=== PATIENT | female | born 1960 ===

== ENCOUNTER 2017-11-11 07:25 | Day surgery (SDC) | payer MEDICARE ==
[~2017-11-11 07:25] MED LIST: Bupivacaine HCl 0.25% PF (10 ml) Inj ONE; Lidocaine Hydrochloride 0 ML INJ ONE; MethylPREDNISolone Depo 40 mg/ml Inj ONE
[2017-11-11] MEDS ORDERED: Lidocaine Hydrochloride 0 ML INJ ONE (07:26)
[2017-11-11] MEDS ORDERED: Iohexol 240 (50 ml) ONE (07:26)
[2017-11-11] MEDS ORDERED: Bupivacaine HCl 0.25% PF (10 ml) Inj ONE (07:26)
[2017-11-11] MEDS ORDERED: MethylPREDNISolone Depo 40 mg/ml Inj ONE (07:26)
[2017-11-11] MEDS ORDERED: Propofol 10 mg/ml Inj (20 ML) ONE (07:33)
[2017-11-11] MEDS ORDERED: Midazolam 2 MG/2 ML VIAL ONE (09:14)
[2017-11-11 10:42] VITALS: PULSE 58; RESP 16; O2SAT 100
--- NOTE | 2017-11-11 13:12 | OP ---
PROCEDURE DATE: 11/11/2017 PREOPERATIVE DIAGNOSES: 1. Cervical radiculopathy. 2. 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 3. Myalgias. POSTOPERATIVE DIAGNOSES: 1. Cervical radiculopathy. 2. 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 3. Myalgias. PROCEDURE: 1. Cervical epidural steroid injection, C6-C7. 2. Epidurogram. 3. Trigger point injections. X-RAY: [id number], fluoroscopy of the spine. ANESTHESIA: MAC/local. SURGEON: Mayra Gardner MD COMPLICATIONS: None. BLOOD LOSS: 2 mL. BRIEF HISTORY AND INDICATIONS: The patient has cervical radiculopathy and upper extremity pain and tingling radiating down from the posterior neck down to the arm and posterior shoulder side to all fingers. This patient presents today for a cervical epidural steroid injection under fluoroscopic guidance at the C6-C7 interlaminar space. PROCEDURE IN DETAIL: The patient, after giving informed consent for the procedure, was brought back to the procedure room, sitting in a wheelchair. Routine monitors were applied. The patient was leant forward with his neck flexed and forehead placed on a towel on the OR table. Neck was flexed at approximately 50 degrees lateral. Lateral fluoroscopic view was obtained at the C6-C7 levels. The patient was prepped and draped in a sterile fashion. A 27-gauge needle was used to inject lidocaine 1% subcutaneously over the skin overlying the interlaminar space of C6-C7. Subsequently, a 22-gauge Tuohy needle was used to advance into the C6-C7 interlaminar area using loss of resistance technique to enter the epidural space. The needle position was confirmed in lateral views. Contrast 180 Omnipaque was injected 0.5 mL showing good epidurogram. Subsequently, 80 mg of Depo-Medrol with 1 mL of normal saline was injected with intermittent negative aspiration. No heme or CSF was aspirated throughout. No paresthesias were elicited throughout. The patient tolerated the procedure well. Vital signs remained stable. The patient reported slight reduction in pain post procedure. Epidurogram: The patient underwent cervical epidural steroid injection today. The epidural was observed at the level of C6-C7 under AP and lateral fluoroscopic guidance. 2 mL of Omnipaque 200 contrast was injected that evenly spread from level C4 to C7 level with posterior-anterior dye spread bilaterally at level of C6-C7 and C5-C6. There appeared to be a moderate degree spondylosis at the level of C5-C6 and moderate degree of spondylosis at the level of C6-C7 with disc protrusion at the level of C6-C7. The intervertebral disc height at the level of C5-C6 was slightly less than normal and intervertebral disc height at the level of C7-T1 was well maintained. The neural foramen appeared to be patent. Conclusion: Good epidural dye containment from C6-C7 with intervertebral disc protrusion at the level of C5-C6, C6-C7, maintaining less than normal intervertebral disc height at level C5-C6. Spondylosis noted at the level of C4 through T1. Copies of the images are on file. Trigger Point Injections/Greater and Lesser Occipital Nerve Blocks: Tender to palpation on cervical areas and pain shooting up posterior head. Patient signed informed consent. Cervical area was prepped and draped in sterile fashion. A 25-gauge needle was used to inject trigger point areas in trapezius muscles, paracervical muscles, and rhomboids bilaterally. The greater and lesser occipital nerves were also injected bilaterally by inserting needle 1 cm lateral and inferior to the posterior occipital protuberance. Total volume used was 10 mL of 0.25% Marcaine mixed with 40 mg Kenalog. Intermittent aspiration was done throughout with no heme or CSF aspirated throughout. Patient tolerated procedure well. DISPOSITION: Patient was taken to the recovery room in stable condition. Patient was given instructions to follow up in two weeks and was discharged in stable condition. No events or complications. Mayra Gardner MD
--- NOTE | 2017-11-11 15:01 | RAD ---
PROCEDURE: Intraoperative Fluoroscopy. HISTORY: CERVICAL SPONDYLOSIS FINDINGS: Fluoroscopic assistance was provided for cervical epidural C6-7 injection. Please refer to the operative report from ED[facility] Arriola.
[2017-11-11 16:41] VITALS: BP 120/51; TEMP 97.9
== END 2017-11-11 10:52 | disposition home or self-care (01) ==
LOC: C.SDS 07:25
PROVIDERS: ATTEND Anesthesiology Pain Medicine
DX: M50.20 Other cervical disc displacement, unspecified cervical region (principal); M47.22 Other spondylosis with radiculopathy, cervical region
CPT/HCPCS: 20552; 62320; J1030; J2250; J3010; Q9966